=== PATIENT | female | born 1990 | race Caucasian/White ===

== ENCOUNTER 2021-02-27 17:14 | Emergency (ER) | payer OTHER ==
[2021-02-27 18:23] LABS: HEMOGLOBIN 14.6 gm/dl (12.3-15.3); RED BLOOD COUNT 4.54 M/UL (4.00-5.10); WHITE BLOOD COUNT 12.1 K/UL (4.5-11.0)
[2021-02-27 18:36] LABS: BUN/CREATININE RATIO 12 (0-10)
[2021-02-28] MEDS ORDERED: FLAGYL500 MG PO (00:19)
[2021-02-28] MEDS ORDERED: ONDANSETRON ODT4 MG SL (00:19)
[2021-02-28] MEDS ORDERED: BACTRIM DS TAB1 EACH PO (00:19)
[2021-02-28] MEDS ORDERED: K-DUR TAB 20 M20 MEQ PO (00:19)
== END 2021-02-28 00:35 | disposition home or self-care (01) ==
LOC: ER1 17:14
PROVIDERS: Family Medicine
DX: K52.9 Noninfective gastroenteritis and colitis, unspecified (principal); E87.6 Hypokalemia; I10 Essential (primary) hypertension; K21.9 Gastro-esophageal reflux disease without esophagitis; F17.200 Nicotine dependence, unspecified, uncomplicated; Z90.49 Acquired absence of other specified parts of digestive tract; Z85.41 Personal history of malignant neoplasm of cervix uteri; Z88.0 Allergy status to penicillin; Z79.899 Other long term (current) drug therapy
CPT/HCPCS: 80053; 81001; 82150; 83690; 84703; 85025; 96374; 96375; 99284; J2270; J2405; Q9967